=== PATIENT | male | born 1960 | race Caucasian/White ===

== ENCOUNTER 2016-11-10 15:49 | Emergency (ER) | payer OTHER ==
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
[2016-11-10] MEDS ORDERED: KETOROLAC 30 MG/1 ML SDV ONE (17:43)
[2016-11-10] MEDS ORDERED: OXYCODONE/APAP 5/325MG PREPACK#4 BTL TAKEHOME ONE (19:11)
[2016-11-10 19:26] VITALS: BP 134/69; PULSE 74; RESP 18; TEMP 98.6; O2SAT 97
== END 2016-11-10 19:24 | disposition home or self-care (01) ==
LOC: EDUNIT#
PROC: 0CQ0XZZ Repair Upper Lip, External Approach (ICD-10-PCS; principal; 2016-11-10)
PROC: 0HQ1XZZ Repair Face Skin, External Approach (ICD-10-PCS; 2016-11-10)
DX: S52.132A Displaced fracture of neck of left radius, initial encounter for closed fracture (principal); S09.90XA Unspecified injury of head, initial encounter; S16.1XXA Strain of muscle, fascia and tendon at neck level, initial encounter; S40.012A Contusion of left shoulder, initial encounter; S01.511A Laceration without foreign body of lip, initial encounter; S01.412A Laceration without foreign body of left cheek and temporomandibular area, initial encounter; V28.2XXA Unspecified motorcycle rider injured in noncollision transport accident in nontraffic accident, initial encounter
CPT/HCPCS: A4565; J1885

== ENCOUNTER → 2017-01-22 | Outpatient (CLI) | payer OTHER | LOC: BMCIMAGING 15:00 | PROVIDERS: ATTEND Internal Medicine | DX: R10.32 Left lower quadrant pain (principal) ==

== ENCOUNTER → 2017-05-21 | Outpatient (CLI) | payer OTHER | LOC: BMCIMAGING 09:10 | PROVIDERS: ATTEND Internal Medicine | DX: R50.9 Fever, unspecified (principal) ==